=== PATIENT | male | born 1970 | race Caucasian/White ===

== ENCOUNTER → 2019-09-25 | Outpatient (CLI) | payer OTHER ==
[~2019-09-25] MED LIST: CARISOPRODOL 3350 MG; CLEOCIN HCL300 MG PO; CLONAZEPAM0.125 MG PO; DOXEPIN 50MG CA50 M1; IBUPROFEN 800800 M1 PO; NORCO 5-325 TA1 EACH PO; RANITIDINE 150150 MG; SEROQUEL 50 MG50 M1
== END ==
LOC: M.ULTRA 14:00
PROVIDERS: ATTEND Family Medicine
DX: K76.0 Fatty (change of) liver, not elsewhere classified (principal); R94.5 Abnormal results of liver function studies; R16.0 Hepatomegaly, not elsewhere classified